=== PATIENT | male | born 1955 | race Caucasian/White ===

== ENCOUNTER 2020-06-26 06:25 | Day surgery (SDC) | payer BC ==
[~2020-06-26] VITALS: Ht 177.8 cm; Wt 97.1 kg
[~2020-06-26 06:25] MED LIST: ALLBUTEROL INH; CLOM50CA2 PO; GUAI12009 PO; ROSU20TA2 PO; TADA5TAB2 PO; [UNRECOGNIZED DRUG - OTHER] PO
[2020-06-26] MEDS ORDERED: CHLORHEXIDINE 15 ML UDC ONE (06:37)
[2020-06-26] MEDS ORDERED: BUPIVACAINE/PF 0.5% ONE (06:44)
[2020-06-26] MEDS ORDERED: EPINEPHRINE 1 MG/ML, 1ML ONE (06:44)
[2020-06-26] MEDS ORDERED: LACTATED RINGERS 1,000 ML IV SCH (06:49)
[2020-06-26 06:51] VITALS: BP 135/88
[2020-06-26] MEDS ORDERED: CHLORHEXIDINE 15 ML UDC MM ONE (07:00)
[2020-06-26] MEDS ORDERED: FENTANYL PF 250 MCG/5ML ONE (07:51)
[2020-06-26] MEDS ORDERED: MIDAZOLAM 1 MG/ML, 2ML ONE (07:51)
[2020-06-26] MEDS ORDERED: ALBUTEROL HFA 90 MCG/SPRAY ONE (07:52)
[2020-06-26] MEDS ORDERED: LIDOCAINE GEL 2%, 5ML ONE (07:52)
[2020-06-26] MEDS ORDERED: PROPOFOL 10 MG/ML, 20ML ONE (07:53)
[2020-06-26] MEDS ORDERED: SUCCINYLCHOLINE 20 MG/ML, 10ML ONE (07:53)
[2020-06-26] MEDS ORDERED: ROCURONIUM 10 MG/ML,10ML ONE (07:53)
[2020-06-26] MEDS ORDERED: ONDANSETRON 2MG/ML, 2ML ONE (07:53)
[2020-06-26] MEDS ORDERED: DEXAMETHASONE 4 MG/ML, 1ML ONE (07:53)
[2020-06-26] MEDS ORDERED: CEFAZOLIN 1,000 MG ONE (08:22)
[2020-06-26] MEDS ORDERED: BUPIVACAINE/PF-EPI 0.5% 1:200K INFIL ONE (08:41)
[2020-06-26] MEDS ORDERED: HYDROmorphone 2 MG/ML, 1ML IVPush PRN (09:00)
[2020-06-26] MEDS ORDERED: OXYcodone 5 MG/5 ML ORAL.SOL UDC PO PRN (09:00)
[2020-06-26] MEDS ORDERED: PROMETHAZINE 25 MG/ML, 1ML IV PRN (09:00)
[2020-06-26] MEDS ORDERED: ALBUTEROL SULFATE 2.5 MG/3 ML NPPB PRN (09:00)
[2020-06-26] MEDS ORDERED: hydrALAzine 20 MG/ML, 1ML IV PRN (09:00)
[2020-06-26] MEDS ORDERED: MEPERIDINE/PF 25MG/0.5ML IVPush PRN (09:00)
[2020-06-26] MEDS ORDERED: FENTANYL PF 100 MCG/2ML IV PRN (09:00)
[2020-06-26] MEDS ORDERED: LABETALOL 5MG/ML, 20ML IV PRN (09:00)
[2020-06-26] MEDS ORDERED: ACETAMINOPHEN 325 MG TABLET PO PRN (09:00)
[2020-06-26] MEDS ORDERED: KETOROLAC 30 MG/1 ML IV PRN (09:00)
[2020-06-26] MEDS ORDERED: DIAZEPAM 5 MG/ML, 2ML IVPush PRN (09:00)
[2020-06-26] MEDS ORDERED: SUGAMMADEX 200 MG/2 ML IVPush ONE (09:04)
== END 2020-06-26 11:25 | disposition home or self-care (01) ==
LOC: OUT 06:25
PROVIDERS: ATTEND Surgery
DX: K42.9 Umbilical hernia without obstruction or gangrene (principal); E78.5 Hyperlipidemia, unspecified; Z20.828 Contact with and (suspected) exposure to other viral communicable diseases; Z88.8 Allergy status to other drugs, medicaments and biological substances; Z79.899 Other long term (current) drug therapy; Z72.89 Other problems related to lifestyle; Z82.49 Family history of ischemic heart disease and other diseases of the circulatory system
CPT/HCPCS: 36415; 49585; 87635; 93005; J0171; J0330; J0690; J1100; J2250; J2405; J2704; J3010; J7120